=== PATIENT | female | born 1950 | race Caucasian/White ===

== ENCOUNTER 2017-09-04 16:30 | Emergency (ER) | payer MEDICARE, BC ==
--- NOTE | 2017-09-04 16:36 | EDM.PDOC ---
ED HPI GENERAL MEDICAL PROBLEM - General Chief Complaint: General Stated Complaint: Injury from a cow Time Seen by Provider: 09/04/17 16:30 Source of Information: Reports: Patient, Old Records ([facility] chart/EMR) History Limitations: Reports: No Limitations - History of Present Illness INITIAL COMMENTS - FREE TEXT/NARRATIVE: The patient was brought to the emergency room via private automobile by her [id number] for evaluation of an injury that occurred at her home at about 15:45 hours this afternoon. Note that the patient was trying to bring a cow into a gated area when the cow pinded her between a fence post and the cow. She does have a history of a mild facial contusion, right hand contusion, and mid chest contusion, however no history of fall, other head injury, loss of consciousness, change in mental status, neck/back pain, or other complaints or injuries. The patient denies any chest pressure, heart flutter, dizziness, orthostasis, orthopnea, diaphoresis, paresthesias, recent decreased exercise tolerance, or any other anginal-type symptoms. No recent history of abdominal pain, heartburn, nausea, diarrhea, melena, gross hematochezia, or any food intolerance, including fatty foods, etc.. The patient also denies any recent fever, cough, wheezing, dyspnea, etc.. No history of recent headaches, visual changes, diplopia, change in mental status, or other change in neurological status. Onset: Today, Sudden Onset Date: 09/04/17 Onset Time: 15:45 Duration: Constant Location: Reports: Face (No pain in this area), Chest, Upper Extremity, Right. Denies: Head, Neck, Abdomen, Back, Pelvis, Upper Extremity, Left, Lower Extremity, Right, Generalized, Radiates to Quality: Reports: Ache, Same as Previous Episode, Sharp, Throbbing. Denies: Pressure Severity: Mild Improves with: Reports: Rest Worsens with: Reports: Movement. 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: Reports: Other (see below) (None) Middle Anterior Chest Pain Score (Numeric/FACES): 4 - Related Data Allergies Allergy/AdvReac Type Severity Reaction Status Date / Time alendronate sodium Allergy Pain Verified 09/04/17 16:36 [From Fosamax] CT Scan DYE Allergy Tachycardia Uncoded 09/04/17 16:36 Home Meds: Home Meds Aspirin [Nadine Chewable Aspirin] 81 mg PO BEDTIME 03/24/14 [History] Calcium Carbonate/Vitamin D3 [Calcium 600 + Vit D 400] 2 tab PO DAILY 03/24/14 [ History] Cranberry Conc/C/Bacill Coag [Cranberry Tablet] 2 tab PO DAILY 03/24/14 [History ] Doxazosin Mesylate 0.5 mg PO BEDTIME 03/24/14 [History] Hydrochlorothiazide 25 mg PO DAILY 03/24/14 [History] Levothyroxine Sodium 88 mcg PO BEDTIME 03/24/14 [History] Metoprolol Tartrate [Lopressor] 12.5 mg PO BID 03/24/14 [History] Multivitamin [Multi-Vitamin Daily] 1 tab PO DAILY 03/24/14 [History] [place]-3/DHA/Epa/Fish Oil [Fish Oil 1,000 mg Softgel] 2 each PO DAILY 03/24/14 [ History] Potassium Chloride 10 meq PO DAILY 03/24/14 [History] Simvastatin 40 mg PO BEDTIME 03/24/14 [History] Magnesium Oxide 250 mg PO BIDM #10 tablet 07/27/14 [Rx] Nitrofurantoin Monohyd/M-Cryst [Macrobid 100 mg Capsule] 100 mg PO BID #20 capsule 09/04/17 [Rx] Past Medical History HEENT History: Reports: Impaired Vision. Denies: Allergic Rhinitis, Cataract, Glaucoma, Hard of Hearing, Macular Degeneration, Otitis Media, Retinal Detachment Other HEENT History: Patient wears glasses Cardiovascular History: Reports: High Cholesterol, Hypertension. Denies: Afib, Aneurysm, Arrhythmia, Blood Clots/VTE/DVT, CAD, Heart Murmur, VA, PVD, Syncope Respiratory History: Reports: None. Denies: Asthma, COPD, Intubation, Difficult , Intubation, Previous, PE, Pneumothorax, Sleep Apnea, TB Gastrointestinal History: Reports: Colon Polyp, GERD, Hemorrhoids. Denies: Bowel Obstruction, Celiac Disease, Cholelithiasis, Chronic Constipation, Chronic Diarrhea, Gastritis, Hepatitis, Irritable Bowel Syndrome, Jaundice, Pancreatitis, PUD Other Gastrointestinal History: GERD with mild esophagitis by EGD in 2014 as below. History of benign hyperplastic colonic polyp excised via colonoscopy on . Previous previous history of C. difficile colitis rather than inflammatory bowel disease, which was mentioned in previous medical records. LFTs elevation secondary to fatty liver. Genitourinary History: Reports: None. 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 Denies: Dysfunctional Uterine Bleeding, Endometriosis, Fibroids, Polycystic Ovaries : 5 Para: 3 LMP (Approximate): Other (See Below) Other OB/BYN History: Menopause in her early 50s. Previous history of SAB 2 during first trimester with 1 miscarriage requiring a D&C. Otherwise, Full term without complications during pregnancies or deliveries. Fibrocystic breast disease Musculoskeletal History: Reports: Arthritis, Back Pain, Chronic, Fracture, Gout , Neck Pain, Chronic, Osteoarthritis, Osteoporosis, Other (See Below). Denies: Amputation, RA, SLE Other Musculoskeletal History: Story of borderline right ninth and 10th rib fractures on 02/07/10. Neurological History: Reports: Headaches, Chronic. Denies: Cerebral Aneurysms, Concussion, CVA, Head Trauma, Migraines, MS, Neuropathy, Peripheral, Parkinson's , Seizure, TIA Psychiatric History: Reports: None. Denies: Abuse, Victim of, ADD, ADHD, Addiction, Anxiety, Depression, Psych Hospitalization(s), Psychosis, PTSD, Suicide Attempt, Suicidal Ideation Endocrine/Metabolic History: Reports: Hypothyroidism, Obesity/BMI 30+, Osteopenia, Osteoporosis, Other (See Below). Denies: Diabetes, Gestational, Diabetes, Type I, Diabetes, Type II, Diabetes Mellitus, Type 3c, IDDM Other Endocrine/Metabolic History: Hypomagnesemia Hematologic History: Reports: None. Denies: Anemia, Blood Transfusion(s), Iron Deficiency Immunologic History: Reports: None. Denies: AIDS, HIV, SLE Oncologic (Cancer) History: Reports: None. Denies: Basal Cell Carcinoma, Cervix , Colon, Hodgkin's Lymphoma, Leukemia, Lymphoma, Malignant Melanoma, Non-Hodgkin 's Lymphoma, Ovarian, Squamous Cell Carcinoma, Thyroid, Uterine Dermatologic History: Reports: None. Denies: Eczema, Psoriasis - Infectious Disease History Infectious Disease History: Reports: C-Difficile (C. difficile colitis in 2015) , Chicken Pox, Measles. Denies: Meningitis, Mononucleosis, MRSA, Mumps, Pertussis (Whooping Cough), Rheumatic Fever, Rubella, Scarlet Fever, Shingles, TB, VRE - Past Surgical History Head Surgeries/Procedures: Reports: None HEENT Surgical History: Reports: None, Oral Surgery, Other (See Below). Denies : Adenoidectomy, Cataract Surgery, Eye Surgery, Laser Surgery, LASIK, Myringotomy w Tube(s), Naso-Sinus Surgery, Tonsillectomy Other HEENT Surgeries/Procedures: Multiple teeth extractions. Cardiovascular Surgical History: Reports: None. Denies: Varicose Respiratory Surgical History: Reports: None. Denies: Thoracentesis GI Surgical History: Reports: Colonoscopy, EGD, Polypectomy, Other (See Below). Denies: Appendectomy, Cholecystectomy, Hernia, Abdominal, Hernia, Inguinal, Hernia Repair/Other Other GI Surgeries/Procedures: EGD and colonoscopy with excision of hyperplastic colonic polyp from the sigmoid region on 03/24/14. Previous colonoscopy on 10/31/05. Female Surgical History: Reports: D&C, Other (See Below). Denies: Section, Hysterectomy, Oophorectomy, Tubal Ligation Other Female Surgeries/Procedures: Aspiration of benign breast cystside unknown Endocrine Surgical History: Reports: None. Denies: Thyroid Biopsy Neurological Surgical History: Reports: None. Denies: C-Spine, Discectomy, Intracranial, Laminectomy, Lumbar Spine, Sacral Spine, Spinal Fusion, Thoracic Spine, Vertebroplasty Musculoskeletal Surgical History: Reports: None. Denies: Arthroscopic Procedure , Carpal Tunnel, Ganglion Cyst, Joint Replacement, ORIF, Shoulder Replacement, Shoulder Surgery Oncologic Surgical History: Reports: None Dermatological Surgical History: Reports: None - Past Imaging History Past Imaging History: Reports: CAT Scan (CT of the abdomen and pelvis on .), DEXA Scan (08/30/13), Mammogram (Last mammogram on 10/18/16.), Ultrasound ( Abdominal ultrasound on 02/21/11. Bilateral renal ultrasound on 11/27/16. Gallbladder ultrasound on 10/25/15) Social & Family History - Family History Cardiac: Reports: CAD, Hypertension, VA, Other (See Below). Denies: Afib, Aneurysm, Arrhythmia, Blood Clots/VTE/DVT, Congenital Septal Defect, High Cholesterol, Pacemaker, Syncope Other Cardiac Family History: Mother with fatal VA at age 78. Hypertension and sister with hypertension Musculoskeletal: Reports: Osteoarthritis, Osteoporosis, Other (See Below) Other Musculoskeletal Family History: Mother with osteoarthritis and osteoporosis Neurological: Reports: CVA, Other (See Below). Denies: Alzheimers Disease, Cerebral Aneurysms, Dementia, Migraines, MS, Parkinson's, Seizure, TIA Other Neurological Family History: Father with CVA in his 80s. Mother with CVA in her 70s. Oncologic: Reports: Bladder, Other (See Below) Other Oncologic Family History: Father with bladder cancer - Tobacco Use Smoking Status *Q: Former Smoker Tobacco Use Within Last Twelve Months: No Years of Tobacco use: 2 Packs/Tins Daily: 0.1 Packs/Tins Daily Comment: Experimental in her 20s. Used Tobacco, but Quit: No Smoking Cessation Information Provided To Patient: No Second Hand Smoke Exposure: No Second Hand Smoke Education Provided: No - Caffeine Use Caffeine Use: Reports: Soda (1 soda per day), Tea (One glass per day). Denies: Coffee, Energy Drinks - Alcohol Use Alcohol Use History: Yes Days Per Week of Alcohol Use: 2 Number of Drinks Per Day: 2 Number of Drinks Per Day Comment: Usually mixed drinks Total Drinks Per Week: 4 Alcohol Use in Last Twelve Months: Yes Alcohol Use Frequency: Socially - Recreational Drug Use Recreational Drug Use: No Drug Use in Last 12 Months: No Recreational Drug Type: Denies: Amphetamines (Speed), Cocaine, Heroin, Inhalants (Glues, Solvents, Aerosols), LSD (Acid), Marijuana/Hashish, Methamphetamine, Morphine, Oxycodone ED ROS GENERAL - Review of Systems Review Of Systems: ROS reveals no pertinent complaints other than HPI. ED EXAM, GENERAL - Physical Exam Exam: See Below Exam Limited By: No Limitations General Appearance: Alert, WD/WN, No Apparent Distress Eye Exam: Bilateral Eye: EOMI, Normal Fundi (No nystagmus), Normal Inspection ( Patient wearing glasses), PERRL Ears: Normal External Exam, Normal Canal, Hearing Grossly Normal, Normal TMs Nose: Normal Mucosa, No Blood, Other (Minimal 0.5 cm area of ecchymosis over the proximal lateral nasal bridge region with no abrasion, deformity, fracture, crepitation, or significant localized tenderness). No: Nasal Tenderness, Nasal Deformity, Nasal Swelling, Nasal Drainage Throat/Mouth: Normal Inspection, Normal Lips, Normal Teeth (Multiple missing teeth), Normal Gums, Normal Oropharynx, Normal Voice, No Airway Compromise. No : Dysphagia, Inflammation, Perioral Cyanosis Head: Atraumatic, Normocephalic. No: Facial Swelling, Facial Tenderness, Sinus Tenderness Neck: Normal Inspection, Supple, Non-Tender, Full Range of Motion. No: Lymphadenopathy (L), Lymphadenopathy (R), Thyromegaly Respiratory/Chest: No Respiratory Distress, Lungs Clear, Normal Breath Sounds, No Accessory Muscle Use, Other (Mild Localized palpation pain over the mid sternum with no deformity, crepitation, ecchymosis, swelling, etc.). No: Pleural Rub, Retractions, Splinting Cardiovascular: Normal Peripheral Pulses, Regular Rate, Rhythm, No Edema, No Gallop, No JVD, No Murmur, No Rub. No: Diastolic Murmur, Gallop/S3, Gallop/S4, Friction Rub Peripheral Pulses: 2+: Radial (L), Radial (R), Dorsalis Pedis (L), Dorsalis Pedis (R) GI/Abdominal: Normal Bowel Sounds, Soft, Non-Tender, No Organomegaly, No Distention, No Abnormal Bruit, No Mass, Pelvis Stable, Other (Obese). No: Guarding (Female) Exam: Deferred Rectal (Female) Exam: Deferred Back Exam: Normal Inspection, Full Range of Motion. No: CVA Tenderness (L), CVA Tenderness (R), Muscle Spasm Extremities: Normal Range of Motion, No Pedal Edema, Normal Capillary Refill, Other (Moderate 34 centimeter hematoma over the lateral extensor surface of the right fifth metacarpal with no crepitation, deformity, etc. with only mild localized tenderness in this area). No: Pedal Edema, Joint Swelling, Christian's Sign Neurological: Alert, Oriented, CN II-XII Intact, Normal Cognition, Normal Gait, Normal Reflexes (Negative Babinski's), No Motor/Sensory Deficits Psychiatric: Normal Affect, Normal Mood Skin Exam: Warm, Dry, Intact, Ecchymosis, Other (Right hand hematoma as above). No: Diaphoretic, Wound/Incision Lymphatic: No Adenopathy EKG INTERPRETATION EKG Date: 09/04/17 Time: 16:43 Rhythm: NSR Rate (Beats/Min): 67 [place]: Normal (Left cardiac axis) P-Wave: Present (Mild Diffuse biphasic P waves with extreme poor R-wave progression in the anterior leads) QRS: Normal (QRS interval 0.08 seconds with stable T-wave inversion in leads 3 and V1) ST-T: Normal QT: Normal ND/PQ Interval: 0.16 seconds Comparison: No Change (Last EKG on 10/22/16) Course - Vital Signs Last Recorded V/S: Last Vital Signs Temp 36.5 C 09/04/17 16:30 Pulse 67 09/04/17 18:00 Resp 18 09/04/17 18:00 BP 126/68 09/04/17 18:00 Pulse Ox 100 09/04/17 18:00 Vital Signs - 24 hr 09/04/17 09/04/17 09/04/17 16:30 17:15 18:00 Temperature [ 36.5 C Temporal] Pulse, 75 70 67 Peripheral [ Pulse Oximetry] Respiratory 18 19 18 Rate Blood Pressure 163/75 H 138/72 126/68 [Right Upper Arm] O2 Sat by Pulse 96 98 100 Oximetry - Orders/Labs/Meds Orders: Active Orders 24 hr Category Date Time Status Cardiac Monitoring [RC] . DIRECTED Care 09/04/17 16:37 Active EKG Documentation Completion [RC] ASDIRECTED Care 09/04/17 16:37 Active Oxygen Therapy, ED [RC] PRN Care 09/04/17 16:37 Active Pulse Oximetry [RC] CONTINUOUS Care 09/04/17 16:37 Active Up With Assistance [RC] PFP Care 09/04/17 16:37 Active Vital Signs [RC] PFP Care 09/04/17 16:37 Active Nothing per Oral Now Diet [DIET] Diet 09/04/17 Breakfast Active Chest 2V [CR] Urgent Exams 09/04/17 16:39 Taken Hand Comp Min 3V Rt [CR] Stat Exams 09/04/17 16:41 Taken Sternum Min 2V [CR] Stat Exams 09/04/17 16:40 Taken CULTURE URINE [RM] Routine Lab 09/04/17 17:37 Received UA W/MICROSCOPIC [URIN] Stat Lab 09/04/17 17:37 Ordered Obtain Past Medical Record [OM.PC] Urgent Oth 09/04/17 16:37 Active Resuscitation Status Stat Resus Stat 09/04/17 16:37 Ordered Labs: Laboratory Tests 09/04/17 09/04/17 09/04/17 Range/Units 16:55 16:55 16:55 WBC 7.3 (4.0-10.2) K/uL RBC 4.32 (3.77-5.09) M/uL Hgb 13.7 D (11.7-15.5) g/dL Hct 39.3 (34.0-46.0) % MCV 91.0 (84.0-98.0) fL MCH 31.7 (28.2-33.3) pg MCHC 34.9 (31.7-36.0) g/dL RDW 12.8 (11.2-14.1) % Plt Count 201 (150-350) K/uL Neut % (Auto) 59.3 (45.0-80.0) % Lymph % (Auto) 30.2 (10.0-50.0) % [place] % (Auto) 9.7 (2.0-14.0) % Eos % (Auto) 0.5 (0.0-5.0) % Baso % (Auto) 0.3 (0.0-2.0) % Neut # (Auto) 4.34 (1.40-7.00) K/uL Lymph # (Auto) 2.21 (0.50-3.50) K/uL [place] # (Auto) 0.71 (0.00-1.00) K/uL Eos # (Auto) 0.04 (0.00-0.50) K/uL Baso # (Auto) 0.02 (0.00-0.20) K/uL PT 11.3 (9.8-11.7) SEC INR 1.1 APTT 25.2 (22.1-29.8) SEC Sodium 140 (136-145) mmol/L Potassium 3.8 (3.5-5.1) mmol/L Chloride 102 (98-107) mmol/L Carbon Dioxide 27.9 (21.0-32.0) mmol/L BUN 29 H (7-18) mg/dL Creatinine 1.16 (0.51-1.17) mg/dL Est Cr Clr Drug Dosing TNP Estimated GFR (MDRD) 47 mL/min Glucose 99 (74-106) mg/dL Lactic Acid (0.4-2.0) mmol/L Uric Acid 9.2 H (2.6-7.2) mg/dL Calcium 9.9 (8.5-10.1) mg/dL Magnesium 2.2 (1.8-2.4) mg/dL Total Bilirubin 0.4 (0.2-1.0) mg/dL AST 34 (15-37) U/L ALT 56 (12-78) U/L Alkaline Phosphatase 84 (46-116) IU/L Creatine Kinase 295 (26-308) U/L Creatine Kinase Index 0.9 (0.0-2.5) % CK-MB (CK-2) 2.80 (0.00-3.60) ng/mL Troponin I 0.000 (0.000-0.056) ng/mL Total Protein 7.8 (6.4-8.2) g/dL Albumin 4.0 (3.4-5.0) g/dL Amylase 50 (25-115) U/L Lipase 141 (73-393) U/L Specimen Type Urine Color Urine Appearance Urine pH (5.0-9.0) Ur Specific [place] (1.005-1.030) Urine Protein (NEGATIVE) mg/dL Urine Glucose (UA) (NEGATIVE) mg/dL Urine Ketones (NEGATIVE) mg/dL Urine Occult Blood (NEGATIVE) Urine Nitrite (NEGATIVE) Urine Bilirubin (NEGATIVE) Urine Urobilinogen (0.2-1.0) E.U./dL Ur Leukocyte Esterase (NEGATIVE) Urine RBC /HPF Urine WBC /HPF Ur Epithelial Cells /LPF Urine Bacteria (NONE TO FEW) /HPF 09/04/17 09/04/17 Range/Units 16:55 17:37 WBC (4.0-10.2) K/uL RBC (3.77-5.09) M/uL Hgb (11.7-15.5) g/dL Hct (34.0-46.0) % MCV (84.0-98.0) fL MCH (28.2-33.3) pg MCHC (31.7-36.0) g/dL RDW (11.2-14.1) % Plt Count (150-350) K/uL Neut % (Auto) (45.0-80.0) % Lymph % (Auto) (10.0-50.0) % [place] % (Auto) (2.0-14.0) % Eos % (Auto) (0.0-5.0) % Baso % (Auto) (0.0-2.0) % Neut # (Auto) (1.40-7.00) K/uL Lymph # (Auto) (0.50-3.50) K/uL [place] # (Auto) (0.00-1.00) K/uL Eos # (Auto) (0.00-0.50) K/uL Baso # (Auto) (0.00-0.20) K/uL PT (9.8-11.7) SEC INR APTT (22.1-29.8) SEC Sodium (136-145) mmol/L Potassium (3.5-5.1) mmol/L Chloride (98-107) mmol/L Carbon Dioxide (21.0-32.0) mmol/L BUN (7-18) mg/dL Creatinine (0.51-1.17) mg/dL Est Cr Clr Drug Dosing Estimated GFR (MDRD) mL/min Glucose (74-106) mg/dL Lactic Acid 1.1 (0.4-2.0) mmol/L Uric Acid (2.6-7.2) mg/dL Calcium (8.5-10.1) mg/dL Magnesium (1.8-2.4) mg/dL Total Bilirubin (0.2-1.0) mg/dL AST (15-37) U/L ALT (12-78) U/L Alkaline Phosphatase (46-116) IU/L Creatine Kinase (26-308) U/L Creatine Kinase Index (0.0-2.5) % CK-MB (CK-2) (0.00-3.60) ng/mL Troponin I (0.000-0.056) ng/mL Total Protein (6.4-8.2) g/dL Albumin (3.4-5.0) g/dL Amylase (25-115) U/L Lipase (73-393) U/L Specimen Type Urinvoid Urine Color Yellow Urine Appearance Slightly cloudy Urine pH 6.0 (5.0-9.0) Ur Specific [place] 1.015 (1.005-1.030) Urine Protein 30 H (NEGATIVE) mg/dL Urine Glucose (UA) Negative (NEGATIVE) mg/dL Urine Ketones Negative (NEGATIVE) mg/dL Urine Occult Blood Small H (NEGATIVE) Urine Nitrite Negative (NEGATIVE) Urine Bilirubin Negative (NEGATIVE) Urine Urobilinogen 0.2 (0.2-1.0) E.U./dL Ur Leukocyte Esterase Moderate H (NEGATIVE) Urine RBC 0-5 /HPF Urine WBC 40-50 H /HPF Ur Epithelial Cells Few /LPF Urine Bacteria Moderate H (NONE TO FEW) /HPF Urine specimen set up for culture and sensitivity Meds: Medications Discontinued Medications Generic Name Dose Route Start Last Admin Trade Name Freq PRN Reason Stop Dose Admin Nitrofurantoin Macrocrystals 100 mg 09/04/17 18:05 09/04/17 18:12 Macrobid PO 09/04/17 18:06 100 mg ONETIME ONE Administration - Radiology Interpretation Free Text/Narrative:: nuclear monitoring technician showed sinus rhythm in the 60s with no ectopy or arrhythmia Chest x-ray, PA and lateral, showed evidence of moderate COPD changes with mild aortic valve calcification but cardiomegaly, CHF, pulmonary infiltrates, pneumothorax, rib fractures, etc. Sternal x-rays, complete, somewhat suboptimal in nature but no evidence of acute fracture X-rays of the right hand, complete, shows soft tissue swelling, however no fracture, dislocation, etc. Moderate osteoarthritic changes noted. Departure - Departure Time of Disposition: 18:20 Disposition: Home, Self-Care 01 Condition: Good Clinical Impression: Trauma, Hyperuricemia, Hypothyroidism (acquired) Contusion Qualifiers: Encounter type: initial encounter Contusion area: thoracic wall Contusion of thoracic wall detail: front wall of thorax Laterality: unspecified laterality Qualified Code(s): S20.219A - Contusion of unspecified front wall of thorax, initial encounter UTI (urinary tract infection) Qualifiers: Urinary tract infection type: acute cystitis Hematuria presence: without hematuria Qualified Code(s): N30.00 - Acute cystitis without hematuria Hyperlipidemia Qualifiers: Hyperlipidemia type: unspecified Qualified Code(s): E78.5 - Hyperlipidemia, unspecified - Discharge Information Prescriptions: Nitrofurantoin Monohyd/M-Cryst [Macrobid 100 mg Capsule] 100 mg PO BID #20 capsule Instructions: Nitrofurantoin tablets or capsules, Urinary Tract Infection, Adult, [id number], Contusion, [id number] Referrals: Shreya Lawrence NP [Primary Care Provider] - Forms: ED Department Discharge Additional Instructions: 1. Followup with your regular provider in 10-14 days as directed. Bring these discharge instructions with you to that visit. 2. Tylenol 650 mg by mouth every 4 hours and/or OTC ibuprofen 2-3 tabs by mouth every 6 hours with food as directed./needed. 3. BenGay or equivalent, heating pad, and/or ice packs as directed. 4. Urine tests should be repeated at follow up visit with possible repeat urine culture,etc. at that time. Today's urine culture is pending with results in about 2-3 days. We will call you, if we need to change your therapy. - Problem List & Annotations (1) Trauma SNOMED Code(s): 820711199 Code(s): T14.90XA - INJURY, UNSPECIFIED, INITIAL ENCOUNTER Status: Acute Priority: High Current Visit: Yes Onset Date: 09/04/17 Annotation/Comment: : Trauma code called by me immediately upon patient's arrival to the emergency room secondary to mechanism of injury. Multiple contusions as above with no evidence of significant injury. Symptomatic relief as per discharge instructions. (2) Contusion SNOMED Code(s): 895559010 Code(s): T14.8XXA - OTHER INJURY OF UNSPECIFIED BODY REGION, INITIAL ENCOUNTER Status: Acute Priority: High Current Visit: Yes Onset Date: Annotation/Comment:: Contusions as above. Patient does not wish to have an Phan wrap for her right hand hematoma. Symptomatic relief as per discharge instructions. Qualifiers: Encounter type: initial encounter Contusion area: thoracic wall Contusion of thoracic wall detail: front wall of thorax Laterality: unspecified laterality Qualified Code(s): S20.219A - Contusion of unspecified front wall of thorax, initial encounter (3) Hyperlipidemia SNOMED Code(s): 34147229 Code(s): E78.5 - HYPERLIPIDEMIA, UNSPECIFIED Status: Acute Priority: Medium Current Visit: Yes Annotation/Comment:: Under therapy Qualifiers: Hyperlipidemia type: unspecified Qualified Code(s): E78.5 - Hyperlipidemia , unspecified (4) Hyperuricemia SNOMED Code(s): 93188202 Code(s): E79.0 - HYPERURICEMIA W/O SIGNS OF INFLAM ARTHRIT AND TOPHACEOUS DIS Status: Chronic Priority: Medium Current Visit: Yes Annotation/ Comment:: Arthritis is stable with no recent gout attacks, etc. (5) Hypothyroidism (acquired) SNOMED Code(s): 761104822 Code(s): E03.9 - HYPOTHYROIDISM, UNSPECIFIED Status: Chronic Priority: Medium Current Visit: Yes Annotation/Comment:: Currently under therapy (6) UTI (urinary tract infection) SNOMED Code(s): 66332328 Code(s): N39.0 - URINARY TRACT INFECTION, SITE NOT SPECIFIED Status: Acute Priority: Medium Current Visit: Yes Onset Date: ~09/04/17 Annotation/ Comment:: Macrobid initiated in the emergency room. Close follow-up by regular provider as per discharge instructions. Qualifiers: Urinary tract infection type: acute cystitis Hematuria presence: without hematuria Qualified Code(s): N30.00 - Acute cystitis without hematuria - Problem List Review Problem List Initiated/Reviewed/Updated: Yes - My Orders Last 24 Hours: My Active Orders 09/04/17 16:37 Cardiac Monitoring [RC] . DIRECTED EKG Documentation Completion [RC] ASDIRECTED Oxygen Therapy, ED [RC] PRN Pulse Oximetry [RC] CONTINUOUS Up With Assistance [RC] PFP Vital Signs [RC] PFP Obtain Past Medical Record [OM.PC] Urgent Resuscitation Status Stat 09/04/17 16:39 Chest 2V [CR] Urgent 09/04/17 16:40 Sternum Min 2V [CR] Stat 09/04/17 16:41 Hand Comp Min 3V Rt [CR] Stat 09/04/17 17:37 CULTURE URINE [RM] Routine UA W/MICROSCOPIC [URIN] Stat 09/04/17 Breakfast Nothing per Oral Now Diet [DIET] - Assessment/Plan Last 24 Hours: My Active Orders 09/04/17 16:37 Cardiac Monitoring [RC] . DIRECTED EKG Documentation Completion [RC] ASDIRECTED Oxygen Therapy, ED [RC] PRN Pulse Oximetry [RC] CONTINUOUS Up With Assistance [RC] PFP Vital Signs [RC] PFP Obtain Past Medical Record [OM.PC] Urgent Resuscitation Status Stat 09/04/17 16:39 Chest 2V [CR] Urgent 09/04/17 16:40 Sternum Min 2V [CR] Stat 09/04/17 16:41 Hand Comp Min 3V Rt [CR] Stat 09/04/17 17:37 CULTURE URINE [RM] Routine UA W/MICROSCOPIC [URIN] Stat 09/04/17 Breakfast Nothing per Oral Now Diet [DIET] Assessment:: As above Plan: As above. Extensive precautions were given to the patient, who is in agreement with the treatment plan. See Patient Instructions for further treatment and plan.
[2017-09-04 17:24] LABS: CHLORIDE,CL 102 mmol/L (98-107); SODIUM,NA 140 mmol/L (136-145)
[2017-09-04] MEDS ORDERED: Nitrofurantoin Monohydrate/Macrocrystalline 100 MG Cap PO ONE (18:05)
[2017-09-04 18:54] VITALS: BP 126/68
== END 2017-09-04 18:20 | disposition home or self-care (01) ==
LOC: LL.ED 16:30
DX: S20.219A Contusion of unspecified front wall of thorax, initial encounter (principal); S60.221A Contusion of right hand, initial encounter; E78.00 Pure hypercholesterolemia, unspecified; I10 Essential (primary) hypertension; K21.9 Gastro-esophageal reflux disease without esophagitis; Z87.891 Personal history of nicotine dependence; Z88.8 Allergy status to other drugs, medicaments and biological substances; Z79.82 Long term (current) use of aspirin; Z79.899 Other long term (current) drug therapy; E78.5 Hyperlipidemia, unspecified; W26.8XXA Contact with other sharp object(s), not elsewhere classified, initial encounter
CPT/HCPCS: 36415; 71046; 71120; 73130-RT; 80053; 81001; 82150; 82550; 82553; 83605; 83690; 83735; 84484; 84550; 85025; 85610; 85730; 87086; 87088; 87186; 93005; 99284; A9270-GY

== ENCOUNTER 2018-06-04 17:52 | Emergency (ER) | payer MEDICARE, BC ==
[2018-06-04] MEDS ORDERED: Labetalol 20 MG/4 ML Syringe ONE ×3 (18:50→18:53)
[2018-06-04 18:57] LABS: CHLORIDE,CL 101 mmol/L (98-107); SODIUM,NA 142 mmol/L (136-145)
--- NOTE | 2018-06-04 19:38 | EDM.PDOC ---
ED HPI GENERAL MEDICAL PROBLEM - General Chief Complaint: Neuro Symptoms/Deficits Stated Complaint: HTN, L) arm tingling Time Seen by Provider: 06/04/18 18:00 Source of Information: Reports: Patient History Limitations: Reports: No Limitations - History of Present Illness INITIAL COMMENTS - FREE TEXT/NARRATIVE: Patient is a 67-year-old female who comes in with chief complaint left arm tingling hypertension, headaches does not feeling right patient has been doctoring with PCP for her blood pressure Onset: Today Duration: Hour(s):, Constant Location: Reports: Head Quality: Reports: Ache Severity: Moderate Improves with: Reports: None Worsens with: Reports: None Context: Reports: Other (Headaches hypertension) - Related Data Allergies Allergy/AdvReac Type Severity Reaction Status Date / Time alendronate sodium Allergy Pain Verified 09/04/17 16:36 [From Fosamax] CT Scan DYE Allergy Tachycardia Uncoded 09/04/17 16:36 Home Meds: Home Meds Aspirin [Nadine Chewable Aspirin] 81 mg PO BEDTIME 03/24/14 [History] Calcium Carbonate/Vitamin D3 [Calcium 600 + Vit D 400] 2 tab PO DAILY 03/24/14 [ History] Cranberry Conc/C/Bacill Coag [Cranberry Tablet] 2 tab PO DAILY 03/24/14 [History ] Doxazosin Mesylate 0.5 mg PO BEDTIME 03/24/14 [History] Hydrochlorothiazide 25 mg PO DAILY 03/24/14 [History] Levothyroxine Sodium 88 mcg PO BEDTIME 03/24/14 [History] Metoprolol Tartrate [Lopressor] 12.5 mg PO BID 03/24/14 [History] Multivitamin [Multi-Vitamin Daily] 1 tab PO DAILY 03/24/14 [History] [place]-3/DHA/Epa/Fish Oil [Fish Oil 1,000 mg Softgel] 2 each PO DAILY 03/24/14 [ History] Potassium Chloride 10 meq PO DAILY 03/24/14 [History] Simvastatin 40 mg PO BEDTIME 03/24/14 [History] Magnesium Oxide 250 mg PO BIDM #10 tablet 07/27/14 [Rx] Nitrofurantoin Monohyd/M-Cryst [Macrobid 100 mg Capsule] 100 mg PO BID #20 capsule 09/04/17 [Rx] Past Medical History HEENT History: Reports: Impaired Vision. Denies: Allergic Rhinitis, Cataract, Glaucoma, Hard of Hearing, Macular Degeneration, Otitis Media, Retinal Detachment Other HEENT History: Patient wears glasses Cardiovascular History: Reports: High Cholesterol, Hypertension. Denies: Afib, Aneurysm, Arrhythmia, Blood Clots/VTE/DVT, CAD, Heart Murmur, DC, PVD, Syncope Respiratory History: Reports: None. Denies: Asthma, COPD, Intubation, Difficult , Intubation, Previous, PE, Pneumothorax, Sleep Apnea, TB Gastrointestinal History: Reports: Colon Polyp, GERD, Hemorrhoids. Denies: Bowel Obstruction, Celiac Disease, Cholelithiasis, Chronic Constipation, Chronic Diarrhea, Gastritis, Hepatitis, Irritable Bowel Syndrome, Jaundice, Pancreatitis, PUD Other Gastrointestinal History: GERD with mild esophagitis by EGD in 2015 as below. History of benign hyperplastic colonic polyp excised via colonoscopy on . Previous previous history of C. difficile colitis rather than inflammatory bowel disease, which was mentioned in previous medical records. LFTs elevation secondary to fatty liver. Genitourinary History: Reports: None. Denies: Acute Renal Failure, Chronic Renal Insuffiency, Renal Calculus, Renal Disease, Retention, Urinary, STD, Urinary Incontinence, UTI, Recurrent HOOP COILER History: Reports: , Spontaneous . Denies: Dysfunctional Uterine Bleeding, Endometriosis, Fibroids, Polycystic Ovaries Other HOOP COILER History: Menopause in her early 50s. Previous history of SAB 2 during first trimester with 1 miscarriage requiring a D&C. Otherwise, Full term without complications during pregnancies or deliveries. Fibrocystic breast disease Musculoskeletal History: Reports: Arthritis, Back Pain, Chronic, Fracture, Gout , Neck Pain, Chronic, Osteoarthritis, Osteoporosis, Other (See Below). Denies: Amputation, RA, SLE Other Musculoskeletal History: Story of borderline right ninth and 10th rib fractures on 02/07/10. Neurological History: Reports: Headaches, Chronic. Denies: Cerebral Aneurysms, Concussion, CVA, Head Trauma, Migraines, MS, Neuropathy, Peripheral, Parkinson's , Seizure, TIA Psychiatric History: Reports: None. Denies: Abuse, Victim of, ADD, ADHD, Addiction, Anxiety, Depression, Psych Hospitalization(s), Psychosis, PTSD, Suicide Attempt, Suicidal Ideation Endocrine/Metabolic History: Reports: Hypothyroidism, Obesity/BMI 30+, Osteopenia, Osteoporosis, Other (See Below). Denies: Diabetes, Gestational, Diabetes, Type I, Diabetes, Type II, Diabetes Mellitus, Type 3c, IDDM Other Endocrine/Metabolic History: Hypomagnesemia Hematologic History: Reports: None. Denies: Anemia, Blood Transfusion(s), Iron Deficiency Immunologic History: Reports: None. Denies: AIDS, HIV, SLE Oncologic (Cancer) History: Reports: None. Denies: Basal Cell Carcinoma, Cervix , Colon, Hodgkin's Lymphoma, Leukemia, Lymphoma, Malignant Melanoma, Non-Hodgkin 's Lymphoma, Ovarian, Squamous Cell Carcinoma, Thyroid, Uterine Dermatologic History: Reports: None. Denies: Eczema, Psoriasis - Infectious Disease History Infectious Disease History: Reports: C-Difficile (C. difficile colitis in 2015) , Chicken Pox, Measles. Denies: Meningitis, Mononucleosis, MRSA, Mumps, Pertussis (Whooping Cough), Rheumatic Fever, Rubella, Scarlet Fever, Shingles, TB, VRE - Past Surgical History Head Surgeries/Procedures: Reports: None HEENT Surgical History: Reports: None, Oral Surgery, Other (See Below). Denies : Adenoidectomy, Cataract Surgery, Eye Surgery, Laser Surgery, LASIK, Myringotomy w Tube(s), Naso-Sinus Surgery, Tonsillectomy Other HEENT Surgeries/Procedures: Multiple teeth extractions. Cardiovascular Surgical History: Reports: None. Denies: Varicose Respiratory Surgical History: Reports: None. Denies: Thoracentesis GI Surgical History: Reports: Colonoscopy, EGD, Polypectomy, Other (See Below). Denies: Appendectomy, Cholecystectomy, Hernia, Abdominal, Hernia, Inguinal, Hernia Repair/Other Other GI Surgeries/Procedures: EGD and colonoscopy with excision of hyperplastic colonic polyp from the sigmoid region on 03/24/14. Previous colonoscopy on 10/31/05. Female Surgical History: Reports: D&C, Other (See Below). Denies: Section, Hysterectomy, Oophorectomy, Tubal Ligation Other Female Surgeries/Procedures: Aspiration of benign breast cystside unknown Endocrine Surgical History: Reports: None. Denies: Thyroid Biopsy Neurological Surgical History: Reports: None. Denies: C-Spine, Discectomy, Intracranial, Laminectomy, Lumbar Spine, Sacral Spine, Spinal Fusion, Thoracic Spine, Vertebroplasty Musculoskeletal Surgical History: Reports: None. Denies: Arthroscopic Procedure , Carpal Tunnel, Ganglion Cyst, Joint Replacement, ORIF, Shoulder Replacement, Shoulder Surgery Oncologic Surgical History: Reports: None Dermatological Surgical History: Reports: None - Past Imaging History Past Imaging History: Reports: CAT Scan (CT of the abdomen and pelvis on .), DEXA Scan (08/30/13), Mammogram (Last mammogram on 10/18/16.), Ultrasound ( Abdominal ultrasound on 02/21/11. Bilateral renal ultrasound on 11/27/16. Gallbladder ultrasound on 10/25/15) Social & Family History - Family History Cardiac: Reports: CAD, Hypertension, DC, Other (See Below). Denies: Afib, Aneurysm, Arrhythmia, Blood Clots/VTE/DVT, Congenital Septal Defect, High Cholesterol, Pacemaker, Syncope Other Cardiac Family History: Mother with fatal DC at age 78. Hypertension and sister with hypertension Musculoskeletal: Reports: Osteoarthritis, Osteoporosis, Other (See Below) Other Musculoskeletal Family History: Mother with osteoarthritis and osteoporosis Neurological: Reports: CVA, Other (See Below). Denies: Alzheimers Disease, Cerebral Aneurysms, Dementia, Migraines, MS, Parkinson's, Seizure, TIA Other Neurological Family History: Father with CVA in his 80s. Mother with CVA in her 70s. Oncologic: Reports: Bladder, Other (See Below) Other Oncologic Family History: Father with bladder cancer - Caffeine Use Caffeine Use: Reports: Soda (1 soda per day), Tea (One glass per day). Denies: Coffee, Energy Drinks ED ROS GENERAL - Review of Systems Review Of Systems: See Below Constitutional: Reports: Night Sweats HEENT: Reports: No Symptoms Respiratory: Reports: No Symptoms Cardiovascular: Reports: No Symptoms, Lightheadedness Endocrine: Reports: No Symptoms GI/Abdominal: Reports: No Symptoms : Reports: No Symptoms Musculoskeletal: Reports: No Symptoms Skin: Reports: No Symptoms Neurological: Reports: Headache, Weakness Psychiatric: Reports: No Symptoms Hematologic/Lymphatic: Reports: No Symptoms Immunologic: Reports: No Symptoms ED EXAM, GENERAL - Physical Exam Exam: See Below Exam Limited By: No Limitations General Appearance: Alert, WD/WN, Mild Distress Ears: Normal External Exam, Normal Canal, Hearing Grossly Normal, Normal TMs Ear Exam: Bilateral Ear: Auricle Normal, Canal Normal, TM normal Nose: Normal Inspection, Normal Mucosa, No Blood Throat/Mouth: Normal Inspection, Normal Lips, Normal Teeth, Normal Gums, Normal Oropharynx, Normal Voice, No Airway Compromise Head: Atraumatic, Normocephalic Neck: Normal Inspection, Supple, Non-Tender, Full Range of Motion Respiratory/Chest: No Respiratory Distress, Lungs Clear, Normal Breath Sounds, No Accessory Muscle Use, Chest Non-Tender Cardiovascular: Normal Peripheral Pulses, Regular Rate, Rhythm, No Edema, No Gallop, No JVD, No Murmur, No Rub GI/Abdominal: Normal Bowel Sounds, Soft, Non-Tender, No Organomegaly, No Distention, No Abnormal Bruit, No Mass (Female) Exam: Deferred Rectal (Female) Exam: Deferred Back Exam: Normal Inspection, Full Range of Motion, NT Extremities: Normal Inspection, Normal Range of Motion, Non-Tender, Normal Capillary Refill, No Pedal Edema Neurological: Alert, Oriented, CN II-XII Intact, Normal Cognition, Normal Gait, Normal Reflexes, No Motor/Sensory Deficits Psychiatric: Normal Affect, Normal Mood Skin Exam: Warm, Dry, Intact, Normal Color, No Rash Lymphatic: No Adenopathy Course - Orders/Labs/Meds Orders: Active Orders 24 hr Category Date Time Status Chest 1V Frontal [CR] Routine Exams 06/04/18 18:30 Taken Head wo Cont [CT] Stat Exams 06/04/18 18:00 Taken PROLACTIN [REF] Stat Lab 06/04/18 18:10 Received Labs: Laboratory Tests 06/04/18 06/04/18 06/04/18 Range/Units 18:10 18:10 18:10 WBC 7.5 (4.0-10.2) K/uL RBC 4.64 (3.77-5.09) M/uL Hgb 14.7 (11.7-15.5) g/dL Hct 42.7 (34.0-46.0) % MCV 92.0 (84.0-98.0) fL MCH 31.7 (28.2-33.3) pg MCHC 34.4 (31.7-36.0) g/dL RDW 13.2 (11.2-14.1) % Plt Count 205 (150-350) K/uL Neut % (Auto) 57.9 (45.0-80.0) % Lymph % (Auto) 33.0 (10.0-50.0) % [place]acken % (Auto) 8.4 (2.0-14.0) % Eos % (Auto) 0.4 (0.0-5.0) % Baso % (Auto) 0.3 (0.0-2.0) % Neut # (Auto) 4.36 (1.40-7.00) K/uL Lymph # (Auto) 2.48 (0.50-3.50) K/uL Bracken # (Auto) 0.63 (0.00-1.00) K/uL Eos # (Auto) 0.03 (0.00-0.50) K/uL Baso # (Auto) 0.02 (0.00-0.20) K/uL PT 11.6 (9.5-12.0) SEC INR 1.1 APTT 26.4 (21.0-31.3) SEC D-Dimer, Quantitative (0-400) ng/mL Sodium 142 (136-145) mmol/L Potassium 3.6 (3.5-5.1) mmol/L Chloride 101 (98-107) mmol/L Carbon Dioxide 30.0 (21.0-32.0) mmol/L BUN 19 H (7-18) mg/dL Creatinine 1.02 (0.51-1.17) mg/dL Est Cr Clr Drug Dosing TNP Estimated GFR (MDRD) 54 mL/min Glucose 153 H (74-106) mg/dL Calcium 9.7 (8.5-10.1) mg/dL Magnesium 2.1 (1.8-2.4) mg/dL Total Bilirubin 0.4 (0.2-1.0) mg/dL AST 33 (15-37) U/L ALT 63 (12-78) U/L Alkaline Phosphatase 79 (46-116) IU/L Creatine Kinase 223 (26-308) U/L Creatine Kinase Index 0.8 (0.0-2.5) % CK-MB (CK-2) 1.80 (0.00-3.60) ng/mL Troponin I 0.000 (0.000-0.056) ng/mL NT-Pro-B Natriuret Pep 110 (0-125) pg/mL Total Protein 7.9 (6.4-8.2) g/dL Albumin 4.3 (3.4-5.0) g/dL 06/04/18 Range/Units 18:10 WBC (4.0-10.2) K/uL RBC (3.77-5.09) M/uL Hgb (11.7-15.5) g/dL Hct (34.0-46.0) % MCV (84.0-98.0) fL MCH (28.2-33.3) pg MCHC (31.7-36.0) g/dL RDW (11.2-14.1) % Plt Count (150-350) K/uL Neut % (Auto) (45.0-80.0) % Lymph % (Auto) (10.0-50.0) % [place]acken % (Auto) (2.0-14.0) % Eos % (Auto) (0.0-5.0) % Baso % (Auto) (0.0-2.0) % Neut # (Auto) (1.40-7.00) K/uL Lymph # (Auto) (0.50-3.50) K/uL [place]acken # (Auto) (0.00-1.00) K/uL Eos # (Auto) (0.00-0.50) K/uL Baso # (Auto) (0.00-0.20) K/uL PT (9.5-12.0) SEC INR APTT (21.0-31.3) SEC D-Dimer, Quantitative < 100 (0-400) ng/mL Sodium (136-145) mmol/L Potassium (3.5-5.1) mmol/L Chloride (98-107) mmol/L Carbon Dioxide (21.0-32.0) mmol/L BUN (7-18) mg/dL Creatinine (0.51-1.17) mg/dL Est Cr Clr Drug Dosing Estimated GFR (MDRD) mL/min Glucose (74-106) mg/dL Calcium (8.5-10.1) mg/dL Magnesium (1.8-2.4) mg/dL Total Bilirubin (0.2-1.0) mg/dL AST (15-37) U/L ALT (12-78) U/L Alkaline Phosphatase (46-116) IU/L Creatine Kinase (26-308) U/L Creatine Kinase Index (0.0-2.5) % CK-MB (CK-2) (0.00-3.60) ng/mL Troponin I (0.000-0.056) ng/mL NT-Pro-B Natriuret Pep (0-125) pg/mL Total Protein (6.4-8.2) g/dL Albumin (3.4-5.0) g/dL Meds: Medications Discontinued Medications Generic Name Dose Route Start Last Admin Trade Name Renetta PRN Reason Stop Dose Admin Labetalol HCl Confirm 06/04/18 18:53 Normodyne Administered 06/04/18 18:54 Dose 20 mg .ROUTE .STK-MED ONE Departure - Departure Time of Disposition: 19:39 Disposition: Home, Self-Care 01 Clinical Impression: Hypertension, Generalized headaches Instructions: Preventing Hypertension Referrals: Shreya Lawrence NP [Primary Care Provider] - Care Plan Goals: Hypertension difficult to control with headaches at this time we went ahead and treat her hypertension with labetalol IV we will send her home now she is to take an extra metoprolol titrate 25 tonight at around 9 and follow-up with her primary she is to continue all her medications the same. Patient refused to go to [place] for a follow-up MRI which I don't think she had a a stroke at this time follow with her PCP in the neck tomorrow since she has an appointment - My Orders Last 24 Hours: My Active Orders 06/04/18 18:00 Head wo Cont [CT] Stat 06/04/18 18:10 PROLACTIN [REF] Stat 06/04/18 18:30 Chest 1V Frontal [CR] Routine - Assessment/Plan Last 24 Hours: My Active Orders 06/04/18 18:00 Head wo Cont [CT] Stat 06/04/18 18:10 PROLACTIN [REF] Stat 06/04/18 18:30 Chest 1V Frontal [CR] Routine
== END 2018-06-04 20:00 | disposition home or self-care (01) ==
LOC: LL.ED 17:52
DX: I10 Essential (primary) hypertension (principal); K21.9 Gastro-esophageal reflux disease without esophagitis; E78.00 Pure hypercholesterolemia, unspecified; R51 Headache; Z79.82 Long term (current) use of aspirin; Z79.899 Other long term (current) drug therapy; Z88.8 Allergy status to other drugs, medicaments and biological substances
CPT/HCPCS: 36415; 70450; 71045; 80053; 82550; 82553; 83735; 83880; 84146; 84484; 85025; 85379; 85610; 85730; 93005; 96374; 99285-25; J3490

== ENCOUNTER 2022-01-04 09:30 | Emergency (ER) | payer MEDICARE, BC ==
[2022-01-04] MEDS: Aspirin 81 MG Tab.Chew PO ONE (10:04)
[2022-01-04] MEDS: LORazepam 2 MG/ML SDV IVPUSH ONE (10:05)
[2022-01-04] MEDS: Nitroglycerin 0.4 MG Tab.SL SL ONE (10:05)
[2022-01-04] MEDS: Sodium Chloride 0.9% 10 ML Syringe FLUSH PRN (10:06)
[2022-01-04 10:26] LABS: PTT,PARTIAL THROMBOPLSTIN TIME 26.8 SEC (23.6-29.8)
[2022-01-04 10:30] LABS: RESPIRATORY SYNCYTIAL VIR NAA NEGATIVE (NEGATIVE)
[2022-01-04 10:39] LABS: CORONAVIRUS COVID-19 NAA POSITIVE (NEGATIVE)
[2022-01-04 10:50] LABS: CHLORIDE,CL 103 mmol/L (98-107); ESTIMATED GFR 64 mL/min (>=60); SODIUM,NA 142 mmol/L (136-145)
[2022-01-04 10:55] VITALS: BP 104/64; PULSE 63
== END 2022-01-04 12:10 | disposition home or self-care (01) ==
LOC: LL.ED 09:30
DX: U07.1 COVID-19 (principal); F41.9 Anxiety disorder, unspecified; E78.00 Pure hypercholesterolemia, unspecified; I10 Essential (primary) hypertension; K21.9 Gastro-esophageal reflux disease without esophagitis; E03.9 Hypothyroidism, unspecified; E66.9 Obesity, unspecified; Z68.29 Body mass index [BMI] 29.0-29.9, adult; Z91.041 Radiographic dye allergy status; Z88.8 Allergy status to other drugs, medicaments and biological substances; Z79.82 Long term (current) use of aspirin; Z79.899 Other long term (current) drug therapy
CPT/HCPCS: 0241U; 36415; 70450; 80053; 83735; 83880; 84100; 84443; 84484; 85025; 85610; 85730; 86140; 93005; 93010; 96374; 99284; 99285; A9270; J2060; J3490

== ENCOUNTER 2024-04-19 04:08 | Emergency (ER) | payer MEDICARE, BC ==
[2024-04-19] MEDS ORDERED: Sodium Chloride 0.9% 10 ML Syringe FLUSH PRN (04:13)
[2024-04-19 04:40] LABS: BASOPHILS ABSOLUTE AUTO 0.04 K/uL (0.00-0.20); BASOPHILS PERCENT AUTO 0.7 % (0.0-2.0); EOSINOPHILS ABSOLUTE AUTO 0.04 K/uL (0.00-0.50); EOSINOPHILS PERCENT AUTO 0.7 % (0.0-5.0); HEMATOCRIT 41.4 % (34.0-46.0); HEMOGLOBIN 14.3 g/dL (11.7-15.5); IMMATURE GRAN ABSOLUTE AUTO 0.01 10^3/uL (0.00-0.04); IMMATURE GRAN PERCENT AUTO 0.2 % (0.0-0.4); LYMPHOCYTES ABSOLUTE AUTO 2.11 K/uL (0.50-3.50); LYMPHOCYTES PERCENT AUTO 37.3 % (10.0-50.0); MEAN CORPUSCULAR HEMOGLOBIN 30.9 pg (28.2-33.3); MEAN CORPUSCULAR HGB CONC 34.5 g/dL (31.7-36.0); MEAN CORPUSCULAR VOLUME 89.4 fL (84.0-98.0); MONOCYTES ABSOLUTE AUTO 0.51 K/uL (0.00-1.00); NEUTROPHILS ABSOLUTE AUTO 2.94 K/uL (1.40-7.00); NEUTROPHILS PERCENT AUTO 52.1 % (45.0-80.0); PLATELET COUNT,PLT 188 K/uL (150-350); RED BLOOD CELL COUNT 4.63 M/uL (3.77-5.09); RED CELL DISTRIBUTION WIDTH 12.9 % (11.2-14.1); WHITE BLOOD CELL COUNT,WBC 5.7 K/uL (4.0-10.2)
[2024-04-19 04:54] LABS: INR 1.1 (0.9-1.1); PROTHROMBIN TIME 10.5 SEC (9.0-11.1)
[2024-04-19 05:00] LABS: ALBUMIN 4.1 g/dL (3.4-5.0); BILIRUBIN TOTAL 0.3 mg/dL (0.2-1.0); CALCIUM 9.5 mg/dL (8.5-10.1); CARBON DIOXIDE,CO2 26.7 mmol/L (21.0-32.0); CREATININE 1.1 mg/dL (0.51-1.17); EST CRCL DRUG DOSING (CG) 39.33 mL/min; MAGNESIUM 1.8 mg/dL (1.8-2.4); POTASSIUM,K 3.2 mmol/L (3.5-5.1); PROTEIN TOTAL,TP 7.1 g/dL (6.4-8.2)
[2024-04-19 05:01] LABS: ANION GAP 14.5 meq/L (7-15)
[2024-04-19 05:35] VITALS: BP 155/74; PULSE 70
[2024-04-19] MEDS: Potassium Bicarbonate/Cit Ac 20 MEQ Effervescent Tab PO ONE (05:38)
== END 2024-04-19 05:55 | disposition home or self-care (01) ==
LOC: LL.ED 04:08
DX: E87.6 Hypokalemia (principal); I10 Essential (primary) hypertension; E78.00 Pure hypercholesterolemia, unspecified; K21.9 Gastro-esophageal reflux disease without esophagitis; Z91.041 Radiographic dye allergy status; Z88.8 Allergy status to other drugs, medicaments and biological substances; Z88.6 Allergy status to analgesic agent; Z79.899 Other long term (current) drug therapy
CPT/HCPCS: 36415; 70450; 70551; 71046; 72141; 80053; 82947; 83735; 84484; 85025; 85610; 93005; 93010; 99284; 99285; A9270-GY

== ENCOUNTER 2024-08-12 09:23 | Day surgery (SDC) | payer MEDICARE, BC ==
[~2024-08-12 09:23] MED LIST: Propofol 200 MG/20 ML SDV ONE; Sodium Chloride 0.9% 10 ML Syringe FLUSH PRN
[2024-08-12] MEDS: Lactated Ringers 1,000 ML IV SCH (09:53)
[2024-08-12] MEDS ORDERED: Propofol 200 MG/20 ML SDV ONE (10:40)
[2024-08-12 11:13] VITALS: BP 121/60; PULSE 53
== END 2024-08-12 11:24 | disposition home or self-care (01) ==
LOC: LL.SDS 09:23
PROVIDERS: ATTEND Surgery
DX: Z12.11 Encounter for screening for malignant neoplasm of colon (principal); D12.0 Benign neoplasm of cecum; Z86.0100 Personal history of colon polyps, unspecified; I10 Essential (primary) hypertension; E78.5 Hyperlipidemia, unspecified; E03.9 Hypothyroidism, unspecified; Z79.890 Hormone replacement therapy; Z79.899 Other long term (current) drug therapy; Z88.8 Allergy status to other drugs, medicaments and biological substances
CPT/HCPCS: J2704; J7120